=== PATIENT | male | born 1955 | race Caucasian/White ===

== ENCOUNTER 2019-10-27 15:23 | Emergency (ER) | payer SELFPAY ==
[~2019-10-27] VITALS: Ht 165.1 cm; Wt 76.0 kg
[~2019-10-27 15:23] MED LIST: ATOR40TA59 PO; GEMF600T8 PO; GLIM4TAB8 PO; LOSA1TAB19 PO; MELO7.5T29 PO; METF10007 PO
--- NOTE | 2019-10-27 15:41 | PHYS DOC ---
Past History Past Medical History: CAD, Diabetes, Hypertension, [place], Other Additional Past Medical Histor: Sun Past Surgical History: Angioplasty, Pacemaker Smoking: Cigarettes Alcohol Use: Occasionally General Adult EDM: Chief Complaint: ABDOMINAL PAIN HPI: HPI: Patient is a 64-year-old male who presents to the emergency department for evaluation. He states he has had some generalized abdominal discomfort for the past several weeks, which began after he did some heavy lifting. He states the pain has persisted, and he has developed some abdominal distention and increased belching. He also reports having dark urine but no dysuria or hematuria. He denies any numbness, weakness, incontinence, chest pain, shortness of breath, fevers, or chills. Movement and palpation of his abdomen seems to worsen his pain. Eating does not seem to affect his pain. There are no alleviating or exacerbating factors to his symptoms otherwise. He has no known history of liver disease, but states he does drink alcohol about 4-5 beers a day, and may be a shot, although he states he has not been drinking recently secondary to his abdominal discomfort. He states he has a history of diabetes, coronary artery disease, and hypertension among other things, but states he stopped taking his medications a several months ago because he felt that they were giving him diarrhea. Review of Systems: Review of Systems: Constitutional: Denies fever or chills Eyes: Denies change in visual acuity HENT: Denies nasal congestion or sore throat Respiratory: Denies cough or shortness of breath Cardiovascular: Denies chest pain or edema GI: As per HPI. Denies blood in his stool. : Denies dysuria Musculoskeletal: Denies back pain or joint pain Integument: Denies rash Neurologic: Denies headache, focal weakness or sensory changes Endocrine: Denies polyuria or polydipsia Lymphatic: Denies swollen glands Psychiatric: Denies depression or anxiety Heart Score: Risk Factors: Risk Factors: DM, Current or recent (<one month) smoker, HTN, HLP, family history of CAD, obesity. Risk Scores: Score 0 - 3: 2.5% MACE over next 6 weeks - Discharge Home Score 4 - 6: 20.3% MACE over next 6 weeks - Admit for Clinical Observation Score 7 - 10: 72.7% MACE over next 6 weeks - Early Invasive Strategies Allergies: Allergies: Allergies Coded Allergies Type Severity Reaction Last Updated Verified No Known Drug Allergies 03/08/15 No Physical Exam: PE: PHYSICAL EXAM: CONSTITUTIONAL: Well developed, well nourished HEAD: normocephalic, atraumatic EENT: PERRL, EOMI. Conjunctivae normal color, sclerae non-icteric; moist mucous membranes. NECK: Supple, non-tender; no meningismus. LUNGS: Lungs CTA, breathing even and unlabored. Normal air movement. HEART: Regular rate and rhythm, no murmur CHEST: No deformity; non-tender ABDOMEN: The abdomen is soft, there is tenderness to palpation diffusely in the abdomen, the abdomen is mildly distended, there is no rebound or guarding, bowel sounds are diminished, no masses or bruits. EXTREM: Normal ROM; no deformity, no calf tenderness. Normal pulses palpable in all extremities. There is no pedal edema. SKIN: No rash; no diaphoresis NEURO: Alert; normal speech and cognition; CN's grossly intact; strength grossly intact without focal deficit. BACK: No CVA TTP. Current Patient Data: Labs: Laboratory Tests Test 10/27/19 15:40 10/27/19 16:25 10/27/19 16:32 White Blood Count 4.7 x10^3/uL Red Blood Count 4.26 x10^6/uL Hemoglobin 14.6 g/dL Hematocrit 43.8 % Mean Corpuscular Volume 103 fL Mean Corpuscular Hemoglobin 34 pg Mean Corpuscular Hemoglobin Concent 33 g/dL Red Cell Distribution Width 13.7 % Platelet Count 156 x10^3/uL Neutrophils (%) (Auto) 62 % Lymphocytes (%) (Auto) 24 % Monocytes (%) (Auto) 11 % Eosinophils (%) (Auto) 2 % Basophils (%) (Auto) 1 % Neutrophils # (Auto) 2.9 x10^3uL Lymphocytes # (Auto) 1.1 x10^3/uL Monocytes # (Auto) 0.5 x10^3/uL Eosinophils # (Auto) 0.1 x10^3/uL Basophils # (Auto) 0.0 x10^3/uL Sodium Level 139 mmol/L Potassium Level 3.6 mmol/L Chloride Level 101 mmol/L Carbon Dioxide Level 31 mmol/L Anion Gap 7 Blood Urea Nitrogen 13 mg/dL Creatinine 0.9 mg/dL Estimated GFR (Cockcroft-Gault) 85.5 BUN/Creatinine Ratio 14 Glucose Level 278 mg/dL Calcium Level 8.4 mg/dL Total Bilirubin 2.7 mg/dL Aspartate Amino Transf (AST/SGOT) 80 U/L Alanine Aminotransferase (ALT/SGPT) 54 U/L Alkaline Phosphatase 411 U/L Total Protein 7.1 g/dL Albumin 2.7 g/dL Albumin/Globulin Ratio 0.6 Lipase 78 U/L Urine Collection Type Unknown Urine Color [place] Urine Clarity Hazy Urine pH 6.5 Urine Specific [place] 1.020 Urine Protein 30 mg/dl Urine Glucose (UA) >=1000 mg/dL Urine Ketones (Stick) 40 mg/dL Urine Blood Neg Urine Nitrite Pos Urine Bilirubin Large Urine Urobilinogen Dipstick >=8.0 mg/dL Urine Leukocyte Esterase Neg Urine RBC 1-2 /HPF Urine WBC 1-4 /HPF Urine Squamous Epithelial Cells Few /LPF Urine Bacteria Few /HPF Urine Mucus Mod /LPF Urine Sperm Present /HPF Prothrombin Time 9.9 SEC Prothromb Time International Ratio 1.0 Activated Partial Thromboplast Time 22 SEC Current Medications Medications (Trade) Dose Ordered Sig/Ajit Route PRN Reason Start Time Stop Time Status Last Admin Dose Admin Iohexol (Omnipaque 300 Mg/ml) 75 ml 1X ONCE IV 10/27/19 15:45 10/27/19 15:46 DC 10/27/19 16:50 Info (Do NOT chart on this entry -- for MONITORING) 1 each PRN DAILY PRN MC SEE COMMENTS 10/27/19 16:00 10/29/19 15:59 Vital Signs: Vital Signs Date Time Temp Pulse Resp B/P (MAP) Pulse Ox O2 Delivery O2 Flow Rate FiO2 10/27/19 15:32 98.2 90 16 177/106 (129) 97 Room Air EKG: EKG: [] Radiology/Procedures: Radiology/Procedures: PROCEDURE: CT ABD PELV W/ IV CONTRST ONLY Study: CT abdomen/pelvis with intravenous contrast Indication: Abdominal pain and distention. Comparison: Abdominal ultrasound 09/12/2015 Technique: Helical CT imaging performed of the abdomen and pelvis after the intravenous administration of 75 cc Omnipaque 300 contrast. Sagittal and coronal reformats were obtained. One or more of the following individualized dose reduction techniques were utilized for this examination: 1. Automated exposure control 2. Adjustment of the mA and/or kV according to patient size 3. Use of iterative reconstruction technique. Findings: Mild symmetric frontal thickening of the distal esophageal wall. Slightly more extensive enhancement along the inner wall of the distal esophagus could represent esophageal varices. Partially imaged pacer wires. Slight pericardial thickening but without significant nodularity or enhancement. Slight asymmetric elevation of the right hemidiaphragm with overlying volume loss. Cirrhotic liver that is heterogeneously attenuating. Low-attenuation focus within the right hepatic lobe approaching the dome, image 16 series 2, measures 1 cm. A few additional subtle low-attenuation foci appear somewhat linear and could be vascular in nature. Fluid surrounding the gallbladder in the setting of abdominopelvic ascites. Enhancement of the gallbladder wall but the wall is not pathologically thickened to suggest cholecystitis. No acute abnormality of the pancreas. Unremarkable adrenal glands. Mild splenomegaly. Low-attenuation focus within the spleen, image 26 series 2, measures 0.7 cm. Unremarkable kidneys. Mostly collapsed urinary bladder. The prostate is not enlarged. Scattered colonic diverticuli without diverticulitis. Scattered mild colonic wall thickening but it is favored mostly related to underdistention. The appendix is not well-visualized. Scattered small bowel loops such as at the upper abdomen exhibit wall thickening. No dilatation to suggest obstruction. No gastric mass or wall emphysema. Multifocal calcified and noncalcified atheromatous plaque throughout the aorta and iliofemoral system. The greatest extent of soft plaque involves the left common iliac artery but there is no flow-limiting stenosis. The aortic branch vessel ostia are without apparent flow-limiting stenosis is well. Heterogeneous attenuation of the superior mesenteric vein and its branches is ultimately indeterminate given bolus timing but these vessels are favored to be patent. The splenic vein is patent. Thrombus is seen within the portal vein extending from the portosplenic confluence, image 29 series 2. 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 The intrahepatic IVC is small in caliber as are the hepatic veins. Large volume of abdominopelvic ascites. No pathologically enlarged lymph nodes are well identified. Mild body wall edema. No acute or aggressive osseous process. Scattered degenerative changes and the sacroiliac joints are mostly fused. Impression: 1. Cirrhotic liver and mild splenomegaly. Thrombus is seen within the main portal vein extending from the portosplenic confluence and the main portal vein at the yazmin hepatis is not well visualized. 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 The hepatic veins are small/difficult to delineate and the intrahepatic IVC is partially collapsed but no typical stigmata of acute hepatic vein occlusion is apparent on this exam. 2. No discrete hepatic mass is identified. A small hypoattenuating focus within the right hepatic lobe is not fully characterized but could represent a cyst or hemangioma. Nonemergent liver MRI would better assess for a hepatic mass especially if the patient meets screening guidelines. 3. Large volume ascites. Scattered small bowel and colonic wall thickening favored unrelated to an enterocolitis and possibly from third spacing. 4. Mild enhancement along the inner margin of the distal esophagus is nonspecific but could represent a manifestation of esophageal varices versus esophagitis 5. Additional chronic findings as detailed in the body the report.[] Course & Med Decision Making: Course & Med Decision Making Pertinent Labs and Imaging studies reviewed. (See chart for details) [] 5:45 PM: The patient's condition remains stable. He does not have any focal right upper quadrant tenderness to suggest an acute abnormality to correlate with the CT findings. His entire history is suggestive of chronic liver disease. The patient states he has had a history of heavy drinking in the past, even heavier than at this time. His pain is been going on for several weeks. I discussed the importance of close GI follow-up, alcohol abstinence, avoiding acetaminophen, and return precautions for new or worsening symptoms. The patient does request some medication to help him with the pain, particularly while sleeping and he will be given a prescription for oxycodone at this time. Rosy Disclaimer: Rosy Disclaimer: This electronic medical record was generated, in whole or in part, using a voice recognition dictation system. Departure Departure: Impression: Primary Impression: Liver cirrhosis Additional Impression: Abdominal pain Disposition: 01 HOME/RESIDENCE PRIOR TO ADM Condition: STABLE Referrals: MATHEW WHITLOCK MD (PCP) JEANINE DEVRIES MD Patient Instructions: Abdominal Pain, Cirrhosis Additional Instructions: The CT scan done today as well as the blood work was suggestive of chronic liver abnormalities, likely cirrhosis. It is important that you follow-up with a middleware administrator for further evaluation and likely more testing, to rule out a more serious etiology. Please call [phone] to schedule further outpatient evaluation with GI at [facility]. The prescribed pain medication may cause drowsiness. Use caution while taking. Avoid acetaminophen, or drinking alcohol. Return to medical care for any new or worsening symptoms, development of increasing pain, fever, lethargy, dizziness, lightheadedness, bloody stools, confusion, or any new or worsening symptoms. Scripts Oxycodone Hcl (OXYCODONE HCL IMMED.RELEASE ) 5 Mg Tablet 5 MG PO PRN Q6HRS PRN for PAIN, #10 TAB Prov: ANDRES HUSAIN MD 10/27/19 Justification of Admission: Justification of Admission: Justification of Admission Dx: N/A ANDRES HUSAIN MD Oct 27, 2019 15:41
[2019-10-27] MEDS ORDERED: IOHEXOL 300 MG/ML 75 ML VIAL. IV ONE (15:45)
[2019-10-27] MEDS ORDERED: CONTRAST GIVEN MC PRN (16:00)
[2019-10-27 16:12] LABS: HEMATOCRIT 43.8 % (39.0-53.0); HEMOGLOBIN 14.6 g/dL (13.0-17.5); LYMPH % 24 % (24-48); MEAN CORPUSCULAR HEMOGLOBIN 34 pg (25-35); MEAN CORPUSCULAR HGB CONC 33 g/dL (31-37); MEAN CORPUSCULAR VOLUME 103 fL (79-100); MONO % 11 % (0-9); NEUT % 62 % (31-73); PLATELET COUNT 156 x10^3/uL (140-400); RED BLOOD COUNT 4.26 x10^6/uL (4.30-5.70); RED CELL DISTRIBUTION WIDTH 13.7 % (11.5-14.5); WHITE BLOOD COUNT 4.7 x10^3/uL (4.0-11.0)
[2019-10-27 16:13] LABS: BASO % 1 % (0-3); EOS # 0.1 x10^3/uL (0.0-0.7); EOS % 2 % (0-3); LYMPH # 1.1 x10^3/uL (1.0-4.8); MONO # 0.5 x10^3/uL (0.0-1.1); NEUT # 2.9 x10^3uL (1.8-7.7)
[2019-10-27 16:42] LABS: CREATININE 0.9 mg/dL (0.7-1.3); GFR 85.5; POTASSIUM 3.6 mmol/L (3.5-5.1)
[2019-10-27 16:43] LABS: CALCIUM 8.4 mg/dL (8.5-10.1)
[2019-10-27 16:46] LABS: BILIRUBIN,URINE LARGE (NEG); CLARITY,URINE HAZY; COLOR,URINE AMBER; GLUCOSE,URINE >=1000 mg/dL (NEG)
[2019-10-27 16:47] LABS: BACTERIA,URINE FEW /HPF (0-FEW); NITRITE,URINE POS (NEG); SQUAMOUS EPITHELIAL CELL,UR FEW /LPF; UROBILINOGEN,URINE >=8.0 mg/dL (0.2 mg/dL)
[2019-10-27 16:48] LABS: ALBUMIN 2.7 g/dL (3.4-5.0); ALBUMIN/GLOBULIN RATIO 0.6 (1.0-1.7); TOTAL BILIRUBIN 2.7 mg/dL (0.2-1.0); TOTAL PROTEIN 7.1 g/dL (6.4-8.2)
[2019-10-27 16:48] LABS: SPERM,URINE PRESENT /HPF
--- NOTE | 2019-10-27 17:31 | RAD ---
Study: CT abdomen/pelvis with intravenous contrast Indication: Abdominal pain and distention. Comparison: Abdominal ultrasound 09/12/2015 Technique: Helical CT imaging performed of the abdomen and pelvis after the intravenous administration of 75 cc Omnipaque 300 contrast. Sagittal and coronal reformats were obtained. One or more of the following individualized dose reduction techniques were utilized for this examination: 1. Automated exposure control 2. Adjustment of the mA and/or kV according to patient size 3. Use of iterative reconstruction technique. Findings: Mild symmetric frontal thickening of the distal esophageal wall. Slightly more extensive enhancement along the inner wall of the distal esophagus could represent esophageal varices. Partially imaged pacer wires. Slight pericardial thickening but without significant nodularity or enhancement. Slight asymmetric elevation of the right hemidiaphragm with overlying volume loss. Cirrhotic liver that is heterogeneously attenuating. Low-attenuation focus within the right hepatic lobe approaching the dome, image 16 series 2, measures 1 cm. A few additional subtle low-attenuation foci appear somewhat linear and could be vascular in nature. Fluid surrounding the gallbladder in the setting of abdominopelvic ascites. Enhancement of the gallbladder wall but the wall is not pathologically thickened to suggest cholecystitis. No acute abnormality of the pancreas. Unremarkable adrenal glands. Mild splenomegaly. Low-attenuation focus within the spleen, image 26 series 2, measures 0.7 cm. Unremarkable kidneys. Mostly collapsed urinary bladder. The prostate is not enlarged. Scattered colonic diverticuli without diverticulitis. Scattered mild colonic wall thickening but it is favored mostly related to underdistention. The appendix is not well-visualized. Scattered small bowel loops such as at the upper abdomen exhibit wall thickening. No dilatation to suggest obstruction. No gastric mass or wall emphysema. Multifocal calcified and noncalcified atheromatous plaque throughout the aorta and iliofemoral system. The greatest extent of soft plaque involves the left common iliac artery but there is no flow-limiting stenosis. The aortic branch vessel ostia are without apparent flow-limiting stenosis is well. Heterogeneous attenuation of the superior mesenteric vein and its branches is ultimately indeterminate given bolus timing but these vessels are favored to be patent. The splenic vein is patent. Thrombus is seen within the portal vein extending from the portosplenic confluence, image 29 series 2. 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 The intrahepatic IVC is small in caliber as are the hepatic veins. Large volume of abdominopelvic ascites. No pathologically enlarged lymph nodes are well identified. Mild body wall edema. No acute or aggressive osseous process. Scattered degenerative changes and the sacroiliac joints are mostly fused. Impression: 1. Cirrhotic liver and mild splenomegaly. Thrombus is seen within the main portal vein extending from the portosplenic confluence and the main portal vein at the yazmin hepatis is not well visualized. 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 The hepatic veins are small/difficult to delineate and the intrahepatic IVC is partially collapsed but no typical stigmata of acute hepatic vein occlusion is apparent on this exam. 2. No discrete hepatic mass is identified. A small hypoattenuating focus within the right hepatic lobe is not fully characterized but could represent a cyst or hemangioma. Nonemergent liver MRI would better assess for a hepatic mass especially if the patient meets screening guidelines. 3. Large volume ascites. Scattered small bowel and colonic wall thickening favored unrelated to an enterocolitis and possibly from third spacing. 4. Mild enhancement along the inner margin of the distal esophagus is nonspecific but could represent a manifestation of esophageal varices versus esophagitis 5. Additional chronic findings as detailed in the body the report. Electronically signed by: CRUZITO ZAMARRIPA MD (10/27/2019 5:29 PM) [id number]
[2019-10-27 17:36] VITALS: BP 170/101
[2019-10-27] MEDS ORDERED: OXYC5TAB4 PO (17:45)
== END 2019-10-27 17:50 | disposition home or self-care (01) ==
LOC: ER 15:23
DX: K74.60 Unspecified cirrhosis of liver (principal); R10.84 Generalized abdominal pain; I25.10 Atherosclerotic heart disease of native coronary artery without angina pectoris; E11.9 Type 2 diabetes mellitus without complications; I10 Essential (primary) hypertension; I25.2 Old myocardial infarction; F17.210 Nicotine dependence, cigarettes, uncomplicated; Z98.61 Coronary angioplasty status; Z95.0 Presence of cardiac pacemaker
CPT/HCPCS: 36415; 74177; 80053; 81001; 83690; 85025; 85610; 85730; 87086; 99285; Q9967

== ENCOUNTER → 2019-11-12 | Outpatient (CLI) | payer SELFPAY ==
[2019-10-27 17:36] VITALS: BP 170/101
[~2019-11-12] MED LIST changes: +OXYC5TAB4 PO
--- NOTE | 2019-11-12 13:56 | RAD ---
EXAM: FOOT RIGHT 3V 11/12/2019 12:00 AM CLINICAL INDICATION:Diabetic ulcer on second toe COMPARISON:None TECHNIQUE:3 views of the right foot FINDINGS:No acute fracture. There is severe degenerative joint disease of the fourth MTP joint with lucency along the medial aspect of the metatarsal head, which could be due to cystic or erosive changes. Probable hammertoe of the fourth toe. No definite abnormality of the second toe. Alignment is normal. Bone mineralization is normal. There is mild dorsal soft tissue swelling of the forefoot. No soft tissue gas. IMPRESSION: 1. No definite acute osseous abnormality of the second toe. 2. 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 This could be degenerative however there is concern for infection in this location, MRI would be more useful. Electronically signed by: Carlene Chavis MD (11/12/2019 1:54 PM) [id number]
== END ==
LOC: DXRAD 10:17
PROVIDERS: ATTEND Family Medicine
DX: E11.621 Type 2 diabetes mellitus with foot ulcer (principal); M19.071 Primary osteoarthritis, right ankle and foot
CPT/HCPCS: 73630

== ENCOUNTER 2020-04-18 16:20 | Emergency (ER) | payer OTHER ==
[~2020-04-18] VITALS: Ht 167.6 cm; Wt 53.7 kg
--- NOTE | 2020-04-18 17:24 | EKG ---
[address] [address] Test Date: 2020-04-18 Test Time: 17:16:33 Pat Name: VANESSA MUNOZ Department: Room: Gender: M Surgeon Chief: LORI : 1955 Requested By: CHETAN ROMERO Order Number: [id number] Reading MD: Measurements Intervals [place] Rate: 88 P: 66 PA: 152 QRS: 261 QRSD: 20 T: -65 QT: 420 QTc: 512 Interpretive Statements SINUS RHYTHM ABNORMAL RIGHT SUPERIOR AXIS DEVIATION R-S TRANSITION ZONE IN V LEADS DISPLACED TO THE RIGHT CONSIDER LEFT VENTRICULAR HYPERTROPHY RVH WITH REPOLARIZATION ABNORMALITY PROLONGED QT ABNORMAL ECG RI6.02 No previous ECG available for comparison
[2020-04-18] MEDS ORDERED: ONDANSETRON PF 4 MG/2 ML VIAL. IVP ONE (17:45)
[2020-04-18] MEDS ORDERED: MORPHINE SULFATE 4 MG/ML DISP.SYRIN. IV ONE (17:45)
[2020-04-18] MEDS ORDERED: IV NORMAL SALINE 1,000ML 1,000 ML IV ONE (17:45)
[2020-04-18 17:56] LABS: ALBUMIN 2.1 g/dL (3.4-5.0); ALBUMIN/GLOBULIN RATIO 0.4 (1.0-1.7); CALCIUM 8.7 mg/dL (8.5-10.1); CREATININE 1.3 mg/dL (0.7-1.3); GFR 55.9; MAGNESIUM 2.5 mg/dL (1.8-2.4); TOTAL BILIRUBIN 13.7 mg/dL (0.2-1.0); TOTAL PROTEIN 7.4 g/dL (6.4-8.2)
[2020-04-18] MEDS ORDERED: IOHEXOL 300 MG/ML 75 ML VIAL. IV ONE (18:00)
[2020-04-18 18:02] LABS: POTASSIUM 4.6 mmol/L (3.5-5.1)
[2020-04-18 18:12] LABS: BASO # 0.1 x10^3/uL (0.0-0.2); BASO % 1 % (0-3); EOS # 0.1 x10^3/uL (0.0-0.7); EOS % 1 % (0-3); LYMPH # 2.9 x10^3/uL (1.0-4.8); LYMPH % 27 % (24-48); MEAN CORPUSCULAR HEMOGLOBIN 33 pg (25-35); MEAN CORPUSCULAR HGB CONC 34 g/dL (31-37); MEAN CORPUSCULAR VOLUME 96 fL (79-100); MONO # 0.5 x10^3/uL (0.0-1.1); MONO % 5 % (0-9); NEUT % 67 % (31-73); PLATELET COUNT 406 x10^3/uL (140-400); RED BLOOD COUNT 4.58 x10^6/uL (4.30-5.70); RED CELL DISTRIBUTION WIDTH 15.8 % (11.5-14.5); WHITE BLOOD COUNT 10.5 x10^3/uL (4.0-11.0)
--- NOTE | 2020-04-18 18:57 | RAD ---
Exam: CT of abdomen and pelvis with contrast INDICATION: Lower abdominal pain, diarrhea TECHNIQUE: Sequential axial images through the abdomen and pelvis obtained following the administration of 60 mL of Isovue-370 IV contrast. Sagittal and coronal reformatted images were reconstructed from the axial data and reviewed. Comparisons: 10/27/2019 FINDINGS: Heart size is normal. No pleural effusion. Linear bandlike opacity at the lung bases bilaterally. No pleural effusion. There is a cirrhotic morphology of the liver. Several small hypoattenuating lesions are noted within the liver. Heterogenous lesion along the right hepatic dome series 2 image 21 measuring approximately 2.7 cm and causing bowing of the capsule. There is moderate intrahepatic or ductal dilatation. Spleen, pancreas and adrenals are unremarkable. Gallbladder is decompressed. Kidneys a straight symmetric enhancement. No perinephric inflammation or hydronephrosis. No renal or ureteral calculi are identified. Bladder is decompressed not well evaluated. Prostate is not enlarged. Moderate stool in the ascending colon. Remainder large and small bowel are unremarkable. No free abdominal air or fluid. No obstruction. Abdominal aorta has a normal course and caliber. There is thrombus within the portal vein which appears expansile and enhancing. Cavernous transformation of the portal vein. No enlarged abdominal lymph nodes are identified. No suspicious osseous lesions or acute fractures. IMPRESSION: 1. Cirrhotic morphology of liver with secondary sulcal of portal hypertension including collateral vasculature and large amount of intra-abdominal ascites. 2. Several hypoattenuating lesions in the liver which are incompletely characterized and may represent hepatocellular carcinoma. Correlate with alpha-fetoprotein levels. Dedicated liver protocol MRI would better evaluate. 3. 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 Correlate with alpha-fetoprotein levels, which would be very elevated the setting of tumor thrombus. This can be better evaluated with a dedicated liver protocol MRI with contrast Exposure: One or more of the following in the visualized dose reduction techniques were utilized for this examination: 1. Automated exposure control 2. Adjustment of the MA and/or KV according to patient size 3. Use of iterative of reconstructive technique Electronically signed by: Jozef Melchor MD (04/18/2020 6:53 PM) [facility]
--- NOTE | 2020-04-18 19:03 | PHYS DOC ---
Past History Past Medical History: COPD, Heart Disease, [place], Other Additional Past Medical Histor: cirrhosis Past Surgical History: Pacemaker, Other Additional Past Surgical Histo: cardiac stents Smoking: Cigarettes Alcohol Use: None General Adult EDM: Chief Complaint: DIARRHEA HPI: HPI: Patient is a 64-year-old male who presents to the emergency department complaints of diarrhea, weakness, dizziness, nausea, and shortness of breath for the last 2 days. Patient denies any vomiting. He states his lower abdomen hurts and that he feels fatigued. Patient has a history of cirrhosis, he stopped drinking alcohol 6 months ago. Patient states that he gets paracentesis every week on Friday or Friday. He was supposed to go have paracentesis today but did not go because he felt too bad. He denies any blood in the stool, fever, chest pain, diarrhea, vomiting, or rash. Patient reports he has a dry cough but he is also a smoker. He denies any recent change in his cough. He currently rates his discomfort a 10 out of 10 on the pain scale he denies any alleviating factors. Review of Systems: Review of Systems: Complete ROS is negative unless otherwise noted in HPI. Current Medications: Current Meds: Current Medications Medications (Trade) Dose Ordered Sig/Ajit Start Time Stop Time Status Last Admin Dose Admin Iohexol (Omnipaque 300 Mg/ml) 75 ml 1X ONCE 04/18/20 18:00 04/18/20 18:05 DC 04/18/20 18:24 75 ML Morphine Sulfate (Morphine 4mg Syringe) 4 mg 1X ONCE 04/18/20 17:45 04/18/20 17:50 DC 04/18/20 18:39 4 MG Ondansetron HCl (Zofran) 4 mg 1X ONCE 04/18/20 17:45 04/18/20 17:50 DC 04/18/20 18:39 4 MG Sodium Chloride 1,000 ml @ 1,000 mls/hr 1X ONCE 04/18/20 17:45 04/18/20 18:44 DC 04/18/20 18:39 1,000 MLS/HR Allergies: Allergies: Allergies Coded Allergies Type Severity Reaction Last Updated Verified No Known Drug Allergies 03/08/15 No Physical Exam: PE: See Above Constitutional: Well developed, no acute distress, frail appearance, ill-appearing HENT: Normocephalic, atraumatic, bilateral external ears normal, nose normal. [] Eyes: PERRLA, EOMI, conjunctiva jaundiced, no discharge. [] Neck: Normal range of motion, no stridor. [] Cardiovascular:Heart rate regular rhythm Lungs & Thorax: Respirations even and unlabored, no retractions, no respiratory distress Abdomen: Distended, no abdominal tenderness Skin: Warm, dry, jaundice Extremities: No cyanosis, ROM intact, no edema. [] Neurologic: Alert and oriented X 3, no focal deficits noted. [] Psychologic: Affect flat, judgement normal, mood normal. [] Current Patient Data: Labs: Laboratory Tests Test 04/18/20 17:05 04/18/20 17:09 Sodium Level 117 mmol/L (136-145) *L Potassium Level 4.6 mmol/L (3.5-5.1) Chloride Level 85 mmol/L (98-107) L Carbon Dioxide Level 23 mmol/L (21-32) Anion Gap 9 (6-14) Blood Urea Nitrogen 67 mg/dL (8-26) H Creatinine 1.3 mg/dL (0.7-1.3) Estimated GFR (Cockcroft-Gault) 55.9 BUN/Creatinine Ratio 52 (6-20) H Glucose Level 307 mg/dL (70-99) H Calcium Level 8.7 mg/dL (8.5-10.1) Magnesium Level 2.5 mg/dL (1.8-2.4) H Total Bilirubin 13.7 mg/dL (0.2-1.0) H Aspartate Amino Transferase (AST) 161 U/L (15-37) H Alanine Aminotransferase (ALT) 86 U/L (16-63) H Alkaline Phosphatase 867 U/L (46-116) H Total Protein 7.4 g/dL (6.4-8.2) Albumin 2.1 g/dL (3.4-5.0) L Albumin/Globulin Ratio 0.4 (1.0-1.7) L White Blood Count 10.5 x10^3/uL (4.0-11.0) Red Blood Count 4.58 x10^6/uL (4.30-5.70) Hemoglobin 15.0 g/dL (13.0-17.5) Hematocrit 44.0 % (39.0-53.0) Mean Corpuscular Volume 96 fL (79-100) Mean Corpuscular Hemoglobin 33 pg (25-35) Mean Corpuscular Hemoglobin Concent 34 g/dL (31-37) Red Cell Distribution Width 15.8 % (11.5-14.5) H Platelet Count 406 x10^3/uL (140-400) H Neutrophils (%) (Auto) 67 % (31-73) Lymphocytes (%) (Auto) 27 % (24-48) Monocytes (%) (Auto) 5 % (0-9) Eosinophils (%) (Auto) 1 % (0-3) Basophils (%) (Auto) 1 % (0-3) Neutrophils # (Auto) 7.0 x10^3uL (1.8-7.7) Lymphocytes # (Auto) 2.9 x10^3/uL (1.0-4.8) Monocytes # (Auto) 0.5 x10^3/uL (0.0-1.1) Eosinophils # (Auto) 0.1 x10^3/uL (0.0-0.7) Basophils # (Auto) 0.1 x10^3/uL (0.0-0.2) Platelet Estimate Pending Vital Signs: Vital Signs Date Time Temp Pulse Resp B/P (MAP) Pulse Ox O2 Delivery O2 Flow Rate FiO2 04/18/20 16:50 97.5 88 20 111/64 (80) 100 Room Air EKG: EK-sinus rhythm rate 88, prolonged QT, no STEMI, read by Dr. Heath [] Radiology/Procedures: Radiology/Procedures: PROCEDURE: CT ABD PELV W/ IV CONTRST ONLY Exam: CT of abdomen and pelvis with contrast INDICATION: Lower abdominal pain, diarrhea TECHNIQUE: Sequential axial images through the abdomen and pelvis obtained following the administration of 60 mL of Isovue-370 IV contrast. Sagittal and coronal reformatted images were reconstructed from the axial data and reviewed. Comparisons: 10/27/2019 FINDINGS: Heart size is normal. No pleural effusion. Linear bandlike opacity at the lung bases bilaterally. No pleural effusion. There is a cirrhotic morphology of the liver. Several small hypoattenuating lesions are noted within the liver. Heterogenous lesion along the right hepatic dome series 2 image 21 measuring approximately 2.7 cm and causing bowing of the capsule. There is moderate intrahepatic or ductal dilatation. Spleen, pancreas and adrenals are unremarkable. Gallbladder is decompressed. Kidneys a straight symmetric enhancement. No perinephric inflammation or hydronephrosis. No renal or ureteral calculi are identified. Bladder is decompressed not well evaluated. Prostate is not enlarged. Moderate stool in the ascending colon. Remainder large and small bowel are unremarkable. No free abdominal air or fluid. No obstruction. Abdominal aorta has a normal course and caliber. There is thrombus within the portal vein which appears expansile and enhancing. Cavernous transformation of the portal vein. No enlarged abdominal lymph nodes are identified. No suspicious osseous lesions or acute fractures. IMPRESSION: 1. Cirrhotic morphology of liver with secondary sulcal of portal hypertension including collateral vasculature and large amount of intra-abdominal ascites. 2. Several hypoattenuating lesions in the liver which are incompletely characterized and may represent hepatocellular carcinoma. Correlate with alpha-fetoprotein levels. Dedicated liver protocol MRI would better evaluate. 3. 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 Correlate with alpha-fetoprotein levels, which would be very elevated the setting of tumor thrombus. This can be better evaluated with a dedicated liver protocol MRI with contrast [] Heart Score: Risk Factors: Risk Factors: DM, Current or recent (<one month) smoker, HTN, HLP, family history of CAD, obesity. Risk Scores: Score 0 - 3: 2.5% MACE over next 6 weeks - Discharge Home Score 4 - 6: 20.3% MACE over next 6 weeks - Admit for Clinical Observation Score 7 - 10: 72.7% MACE over next 6 weeks - Early Invasive Strategies Course & Med Decision Making: Course & Med Decision Making Pertinent Labs and Imaging studies reviewed. (See chart for details) 1819-advised the patient that he needs to be admitted to the hospital due to his abnormal lab results and his CT. Patient states he would like to be a DNR. 1824-I spoke with Dr. Molina at [facility] about the patient's lab results. We will need to transfer the patient hyponatremia, diarrhea, lower abdominal pain, and liver disease. I Advised Dr. Molina of the patient's wish to be a DNR. [] Rosy Disclaimer: Rosy Disclaimer: This electronic medical record was generated, in whole or in part, using a voice recognition dictation system. Departure Departure: Impression: Primary Impression: Hyponatremia Additional Impressions: Abdominal pain Qualified Codes: R10.30 - Lower abdominal pain, unspecified Diarrhea Qualified Codes: R19.7 - Diarrhea, unspecified Liver disease, chronic, with cirrhosis Disposition: 02 DC/TRF OTHER SHORT TERM HOS Admitting Physician: Other (Patient is accepted for transfer to [facility] by Dr. Molina) Condition: STABLE Referrals: MATHEW WHITLOCK MD (PCP) CHETAN ROMERO P[employer]ER [employer]ER Apr 18, 2020 19:03
[2020-04-18 20:32] LABS: % EOS 2 % (0-5); % LYMPHS 10 % (24-48); % MONOS 6 % (0-10); % SEGS 82 % (35-66)
[2020-04-18 20:33] LABS: PLT ESTIMATE ADEQUATE (ADEQUATE)
[2020-04-18 21:46] VITALS: BP 96/65
== END 2020-04-18 22:12 | disposition short-term general hospital (02) ==
LOC: ER 16:20
DX: E87.1 Hypo-osmolality and hyponatremia (principal); R19.7 Diarrhea, unspecified; K74.60 Unspecified cirrhosis of liver; R10.30 Lower abdominal pain, unspecified; J44.9 Chronic obstructive pulmonary disease, unspecified; I25.2 Old myocardial infarction; F17.210 Nicotine dependence, cigarettes, uncomplicated; Z95.0 Presence of cardiac pacemaker
CPT/HCPCS: 36415; 74177; 80053; 83735; 85007; 85025; 93005; 96361; 96374; 96375; 99285; J2270; J2405; J7030; Q9967